=== PATIENT | female | born 1950 | race Caucasian/White ===

== ENCOUNTER 2017-03-18 11:11 | Emergency (ER) | payer OTHER, MEDICARE ==
[~2017-03-18] VITALS: Ht 157.5 cm; Wt 61.2 kg
--- NOTE | 2017-03-18 12:05 | RADIOLOGY REPORT ---
EXAMINATION: XR SHOULDER, RIGHT CLINICAL INFORMATION: Status post fall evaluate for fracture. COMPARISON: There are no prior studies for comparison. TECHNIQUE: AP external rotation, Grashey, scapular Y, and axillary views of the right shoulder. FINDINGS: Bulky osteophyte formation is present in the right acromioclavicular joint. The bones and soft tissues are otherwise normal. No fracture. Glenohumeral and acromioclavicular alignment is anatomic with normal joint space. No abnormal soft tissue calcifications. IMPRESSION: No radiographic evidence of acute fracture or subluxation of the right shoulder noted at this time.
--- NOTE | 2017-03-18 12:12 | ED MVC/FALL/TRAUMA COMPLAINT ---
History of Present Illness General Chief Complaint: Fall Stated Complaint: FALL LIP LAC/JAW PAIN Source: patient Exam Limitations: no limitations Vital Signs & Intake/Output Vital Signs & Intake/Output Vital Signs Date Time Temp Pulse Resp B/P B/P Pulse O2 O2 Flow FiO2 Mean Ox Delivery Rate 03/18 1331 98 Room Air 03/18 1302 97.6 90 18 160/94 98 Room Air 03/18 1120 78 16 99 Room Air Allergies Coded Allergies: Penicillins (Intermediate, RASH 03/18/17) morphine (Intermediate, ITCHING 03/18/17) Reconcile Medications Ergocalciferol (Vitamin D2) (Vitamin D2) 50,000 UNIT CAPSULE 1 CAP PO QW HEALTH SUPPLEMENT (Reported) Hydrochlorothiazide 25 MG TABLET 1 TAB PO DAILY HIGH BLOOD PRESSURE (Reported ) Lipase/Protease/Amylase (Creon Dr 36,000 Units Capsule) 36K-114K CAPSULE.DR 1 TAB PO TID HEALTH SUPPLEMENT (Reported) Omeprazole 20 MG CAPSULE.DR 1 CAP PO DAILY ACID REFLUX (Reported) Rosuvastatin Calcium (Crestor) 5 MG TABLET 1 TAB PO Thursday HIGH CHOLESTROL (Reported) Triage Note: 66F BROUGHT DOWN BY HOSPITAL STAFF FOR MECHANICAL FALL FORWARD ONTO FACE AND RIGHT SHOULDER, PRESENTS WITH ABRAISIONS TO FACE, CUT TO RIGHT LOWER LIP, AND UPPER RIGHT LOOSE TOOTH, RIGHT SHOULDER PAIN. DENIES C-SPINE TENDERNESS. -LOC. DENIES DIZZINESS OR LIGHTHEADEDNESS. ORIENTED X3, FOCAL NEUROS INTACT. SPEECH CLEAR. HX PANCREATIC CA WITH WHIPPLE, GASTRIC SLEEVE Triage Nurses Notes Reviewed? yes Onset: Abrupt Duration: hour(s): (1), constant, continues in ED Timing: single episode today Severity: moderate, severe Severity Numbers: 8 Injuries/Fall Location: head, face Method of Injury: fall Loss of Consciousness: no loss of consciousness No Modifying Factors: none LMP (ages 10-50): post menopausal : No Patient currently breastfeeds: No HPI: 66 y/o female past medical history of hyperlipidemia, pancreatic cancer presents for evaluation after a fall. Patient states she was walking when she tripped and fell and landed on her face/chin. She states that she hit her tooth pushing it backwards making a loose. She also reports that she sustained lacerations to her lower lip. She did hit her head but did not lose consciousness. She denies any neck pain. No chest pain shortness of breath or dizziness before the fall. The fall was mechanical. She was able to ambulate since the fall. She reports pain in her bilateral jaw that is worse with movement of the jaw. She does feel like her teeth are lining up appropriately. No difficulty breathing or difficulty swallowing. She does not take blood thinning medications. No vomiting or changes in vision. (Eladio Hinojosa) Past History Travel History Traveled to [place] past 21 day No Medical History Any Pertinent Medical History? see below for history Neurological: NONE EENT: NONE Cardiovascular: hyperlipidemia Respiratory: NONE Gastrointestinal: PANCREATIC CA Hepatic: NONE Renal: NONE Musculoskeletal: NONE Psychiatric: NONE Endocrine: NONE Surgical History Surgical History: non-contributory Psychosocial History What is your primary language Italian Tobacco Use: Never used ETOH Use: denies use Illicit Drug Use: denies illicit drug use Family History Hx Contributory? No (Eladio Hinojosa) Review of Systems Review of Systems Constitutional: Reports: no symptoms. Eyes: Reports: no symptoms. Ears, Nose, Throat, Mouth: Reports: mouth pain, loose teeth. Respiratory: Reports: no symptoms. Cardiovascular: Reports: no symptoms. Gastrointestinal/Abdominal: Reports: no symptoms. Genitourinary: Reports: no symptoms. Musculoskeletal: Reports: joint pain, muscle pain, muscle stiffness. Skin: Reports: no symptoms. Neurological/Psychological: Reports: no symptoms. All Other Systems: Reviewed and Negative (Eladio Hinojosa) Physical Exam Physical Exam General Appearance: well developed/nourished, no apparent distress, alert, awake Head: atraumatic, normal appearance Eyes: Bilateral: normal appearance, PERRL, EOMI. Ears, Nose, Throat, Mouth: hearing grossly normal, dental injury, moist mucous membrane, the right lateral incisor is loosened and displaced posteriorly. There is small amount of active bleeding. There is a laceration to the inside of the right lower lip. There is pain to palpation of the bilateral mandible from the angle of the mandible to the mental protuberance. No crepitus. Small amount of swelling of the soft tissues is noted. Full range of motion of the jaws intact. No pain with palpation or displacement of the TMJ bilaterally patient is handling secretions. No trismus Neck: normal inspection, supple, full range of motion, no midline tenderness Respiratory: normal breath sounds, chest non-tender, no respiratory distress, lungs clear Cardiovascular: regular rate/rhythm, normal peripheral pulses Peripheral Pulses: 2+ radial (R), 2+ radial (L) Gastrointestinal: soft, non-tender Back: normal inspection, normal range of motion, no vertebral tenderness Extremities: normal range of motion Neurologic/Psych: no motor/sensory deficits, awake, alert, oriented x 3, normal gait Skin: intact, normal color, warm/dry Core Measures ACS in differential dx? No CVA/TIA Diagnosis No Sepsis Present: No Sepsis Focused Exam Completed? No (Alejo SOLANO,Eladio) Progress Differential Diagnosis: C/T/L spine injury, ext injury, ICH, fracture, contusion , sprain, displaced tooth Plan of Care: Patient seen and evaluated. She has displacement of the right lateral incisor and a laceration of her lip. She also has tenderness of her jaw. There is no loss of consciousness she does not take blood thinners. CT scans of the head neck and facial bones show a transverse nondisplaced fracture of the left mandibular ramus. Spoke with oral maxillofacial surgeon at [facility]. They recommend close follow-up today to ensure a good outcome. Patient is alert and oriented 3 nontoxic-appearing and has a steady gait. She wishes to be taken to [place] at a private vehicle. She does not want to go by ambulance. Patient was given directions to [facility]. Advised her to go directly there. Advised her that a delay in her care could result in permanent disability. Patient agrees to go directly to [facility]. The accepting physician is Dr. Carmen. Case discussed with Dr. Gannon she agrees. Diagnostic Imaging: Viewed by Me: Radiology Read. Discussed w/RAD: Radiology Read. Radiology Impression: PATIENT: VITALY GASTON PRESENT AGE: 66 PATIENT ACCOUNT NO: [id number] : 50 LOCATION: [facility] ORDERING PHYSICIAN: Eladio SOLANO SERVICE DATE: 03/18/17 EXAM TYPE: RAD - XRY-SHOULDER COMPLETE-RIGHT EXAMINATION: XR SHOULDER, RIGHT CLINICAL INFORMATION: Status post fall evaluate for fracture. COMPARISON: There are no prior studies for comparison. TECHNIQUE: AP external rotation, Grashey, scapular Y, and axillary views of the right shoulder. FINDINGS: Bulky osteophyte formation is present in the right acromioclavicular joint. The bones and soft tissues are otherwise normal. No fracture. Glenohumeral and acromioclavicular alignment is anatomic with normal joint space. No abnormal soft tissue calcifications. IMPRESSION: No radiographic evidence of acute fracture or subluxation of the right shoulder noted at this time. DICTATED BY: Yeni Mcginnis MD DATE/TIME DICTATED:03/18/171200 FLIGHT READINESS TECHNICIAN:RICO DATE/ TIME TRANSCRIBED:03/18/171200 CONFIDENTIAL, DO NOT COPY WITHOUT APPROPRIATE AUTHORIZATION., PATIENT: VITALY GASTON PRESENT AGE: 66 PATIENT ACCOUNT NO: [id number] : 50 LOCATION: [facility] ORDERING PHYSICIAN: Eladio SOLANO SERVICE DATE: 03/18/17 EXAM TYPE: CAT - CT MAXILLOFACIAL W/O CON EXAMINATION: CT HEAD , FACIAL BONES AND CERVICAL SPINE WITHOUT CONTRAST CLINICAL INFORMATION: Status post fall, struck head and jaw presenting with jaw pain. COMPARISON: There are no prior studies for comparison. TECHNIQUE: Contiguous axial imaging was performed from the skull base to vertex without intravenous administration of contrast. DLP: 1771 mGy-cm HEAD FINDINGS: There is no evidence of acute intracranial hemorrhage or territorial infarction. No abnormal mass effect or midline shift is seen. Quintanilla to white matter differentiation is well preserved. No extra-axial fluid collections are identified. The ventricles are normal in size. There is no abnormal attenuation within the brain parenchyma. The osseous structures and soft tissues are normal. The mastoid air cells and visualized portions of the paranasal sinuses are well aerated. FACIAL BONES FINDINGS: There are cortical defects in both the anterior posterior and lateral cortical margins of the left mandibular ramus which is proximal to the level of the left temporomandibular joint, consistent with a nondisplaced transverse fracture. The alignment of the left temporomandibular joint remains intact and symmetric compared to the alignment of the right TMJ. Of note the fracture is well visualized only on the coronal and sagittal reformats and very difficult to identify on the axial images. No additional facial bone fractures are noted. Mild mucoperiosteal thickening and a mucous retention cyst is present in the left maxillary sinus. No air-fluid levels are present within the paranasal sinuses. CERVICAL SPINE FINDINGS: The frontal and sagittal alignment is within normal limits. Incidental note is made of focal degenerative changes present at the C6-C7 level with loss of intervertebral disc height and small anterior osteophytes. No cortical defects are noted throughout the cervical spine to suggest acute fracture. No finding focal findings are noted within the bilateral pulmonary apices or the thyroid lobes. There is partial visualization of a left sided central line. IMPRESSION: 1. No acute intracranial pathology. 2. Transverse nondisplaced fracture of the left mandibular ramus. 3. Focal degenerative changes at the C6-C7 level, no acute findings. DICTATED BY: Yeni Mcginnis MD DATE/TIME DICTATED:03/18/171257 FLIGHT READINESS TECHNICIAN:RICO DATE/TIME TRANSCRIBED:03/18/171257 CONFIDENTIAL, DO NOT COPY WITHOUT APPROPRIATE AUTHORIZATION. (Eladio Hinojosa) Departure Departure Disposition: OTHER [facility] (ACUTE) Condition: Stable Clinical Impression Primary Impression: Fracture of ramus of left mandible, initial encounter for closed fracture Referrals: Unknown (PCP/Family) Additional Instructions: FOLLOW UP IMMEDIATLY WITH [facility]. They're located at [address] [place] [address] in [place]. Go there immediately. Delaying your care could result in permanent disability. Departure Forms: Customer Survey General Discharge Information (Eladio Hinojosa) PA/BESSEMER REGULATOR Co-Sign Statement Statement: ED Attending supervision documentation- [] I saw and evaluated the patient. I have also reviewed all the pertinent lab results and diagnostic results. I agree with the findings and the plan of care as documented in the PA's/BESSEMER REGULATOR's documentation. [X] I have reviewed the ED Record and agree with the PA's/BESSEMER REGULATOR's documentation. [] Additions or exceptions (if any) to the PAs/BESSEMER REGULATOR's note and plan are summarized below: [] (Teressa MORGAN,Jazmín)
--- NOTE | 2017-03-18 13:22 | CT SCAN REPORT ---
EXAMINATION: CT HEAD , FACIAL BONES AND CERVICAL SPINE WITHOUT CONTRAST CLINICAL INFORMATION: Status post fall, struck head and jaw presenting with jaw pain. COMPARISON: There are no prior studies for comparison. TECHNIQUE: Contiguous axial imaging was performed from the skull base to vertex without intravenous administration of contrast. DLP: 1771 mGy-cm HEAD FINDINGS: There is no evidence of acute intracranial hemorrhage or territorial infarction. No abnormal mass effect or midline shift is seen. Quintanilla to white matter differentiation is well preserved. No extra-axial fluid collections are identified. The ventricles are normal in size. There is no abnormal attenuation within the brain parenchyma. The osseous structures and soft tissues are normal. The mastoid air cells and visualized portions of the paranasal sinuses are well aerated. FACIAL BONES FINDINGS: There are cortical defects in both the anterior posterior and lateral cortical margins of the left mandibular ramus which is proximal to the level of the left temporomandibular joint, consistent with a nondisplaced transverse fracture. The alignment of the left temporomandibular joint remains intact and symmetric compared to the alignment of the right TMJ. Of note the fracture is well visualized only on the coronal and sagittal reformats and very difficult to identify on the axial images. No additional facial bone fractures are noted. Mild mucoperiosteal thickening and a mucous retention cyst is present in the left maxillary sinus. No air-fluid levels are present within the paranasal sinuses. CERVICAL SPINE FINDINGS: The frontal and sagittal alignment is within normal limits. Incidental note is made of focal degenerative changes present at the C6-C7 level with loss of intervertebral disc height and small anterior osteophytes. No cortical defects are noted throughout the cervical spine to suggest acute fracture. No finding focal findings are noted within the bilateral pulmonary apices or the thyroid lobes. There is partial visualization of a left sided central line. IMPRESSION: 1. No acute intracranial pathology. 2. Transverse nondisplaced fracture of the left mandibular ramus. 3. Focal degenerative changes at the C6-C7 level, no acute findings.
[2017-03-18] MEDS ORDERED: OMEPRAZOLE20 M2 PO (14:26)
[2017-03-18] MEDS ORDERED: CREON DR 36,001 EAC1 PO (14:27)
[2017-03-18] MEDS ORDERED: VITAMIN D250000 UNIT PO (14:28)
[2017-03-18] MEDS ORDERED: HYDROCHLOROTHIA25 M1 PO (14:28)
[2017-03-18] MEDS ORDERED: CRESTOR5 M1 PO (14:29)
== END 2017-03-18 14:42 | disposition short-term general hospital (02) ==
LOC: ERH 11:11
DX: S02.642A Fracture of ramus of left mandible, initial encounter for closed fracture (principal); S01.511A Laceration without foreign body of lip, initial encounter; W01.0XXA Fall on same level from slipping, tripping and stumbling without subsequent striking against object, initial encounter; Y93.01 Activity, walking, marching and hiking; Y92.9 Unspecified place or not applicable
CPT/HCPCS: 73030-RT; 90471